=== PATIENT | female | born 1995 | race Caucasian/White ===

== ENCOUNTER 2017-10-15 16:34 | Emergency (ER) | payer MEDICAID, OTHER ==
[~2017-10-15] VITALS: Ht 149.9 cm; Wt 75.0 kg
[~2017-10-15 16:34] MED LIST: CALC1TAB15 PO; PNV1TABL17 PO
[2017-10-15] MEDS ORDERED: LIDOCAINE HCL 1% 20 ML VIAL INJ ONE (17:45)
[2017-10-15] MEDS ORDERED: ACETAMINOPHEN 325 MG TABLET PO ONE (18:45)
[2017-10-15 19:15] VITALS: BP 125/69
== END 2017-10-15 19:30 | disposition home or self-care (01) ==
LOC: EMS 16:35
DX: S81.811A Laceration without foreign body, right lower leg, initial encounter (principal); F41.9 Anxiety disorder, unspecified; W25.XXXA Contact with sharp glass, initial encounter; Y93.89 Activity, other specified; Y92.89 Other specified places as the place of occurrence of the external cause; Y99.8 Other external cause status
CPT/HCPCS: 12004; 99283; J3490